=== PATIENT | male | born 1980 | race Two or more races ===

== ENCOUNTER 2017-10-02 13:56 | Emergency (ER) | payer OTHER ==
[2017-10-02] MEDS ORDERED: ONDANSETRON HCL 4 MG/2 ML VIAL ONE (14:07)
[2017-10-02] MEDS ORDERED: MORPHINE SULFATE 4 MG/ML SYR/VIAL ONE (14:07)
[2017-10-02] MEDS ORDERED: SODIUM CHLORIDE 0.9% 1,000 ML IV ONE ×2 (14:15→15:43)
[2017-10-02] MEDS ORDERED: ceFAZolin 1GM/50ML 50 ML IV ONE (14:15)
[2017-10-02] MEDS ORDERED: MORPHINE SULFATE 4 MG/ML SYR/VIAL IV ONE ×2 (14:15→19:00)
[2017-10-02] MEDS ORDERED: HYDROmorphone HCL 2 MG/ML VL IV ONE (14:15)
[2017-10-02] MEDS ORDERED: ONDANSETRON HCL 4 MG/2 ML VIAL IV ONE (14:15)
[2017-10-02] MEDS ORDERED: LIDOCAINE 1% HCL (LOCAL ANESTH.) INJ 20ML MDV ONE (14:23)
[2017-10-02] MEDS ORDERED: LIDOCAINE 1% HCL (LOCAL ANESTH.) INJ 20ML MDV IJ ONE (15:15)
[2017-10-02 16:36] LABS: Basophils # (auto) 0 uL; Basophils % (auto) 0.2 % (0.0-2.0); Eosinophils # (auto) 0 uL; Eosinophils % (auto) 0.3 % (0.0-7.0); Hematocrit 51.2 % (41.0-53.0); Hemoglobin 16.8 g/dL (13.5-17.5); Lymphocytes # (auto) 0.7 uL; Lymphocytes % (auto) 6.4 % (10.0-50.0); Mean Corpuscular Hemoglobin 29.8 pg (28.0-32.0); Mean Corpuscular Hgb Conc. 32.8 g/dL (32.0-36.0); Mean Corpuscular Volume 90.8 fL (80.0-100.0); Monocytes # (auto) 0.5 uL; Monocytes % (auto) 4.5 % (0.0-12.0); Neutrophils # (auto) 9.2 uL; Neutrophils % (auto) 88.6 % (37.0-80.0); Nucleated Red Blood Cells % 0.1 %; Platelet Count (auto) 231 10^3/uL (140-450); Red Blood Cells 5.64 10^6/uL (4.5-5.90); Red Cell Distribution Width 14.2 % (11.8-14.3); White Blood Cell 10.4 10^3/uL (4.4-10.8)
[2017-10-02 16:50] LABS: BUN/Creatinine Ratio 10.9; Calcium 8.4 mg/dL (8.5-10.1); Potassium 3.9 mmol/L (3.5-5.1)
[2017-10-02 18:48] VITALS: BP 125/77
[2017-10-02] MEDS ORDERED: cefTRIAXone 1GM/10ml IVPUSH 10 ML IV ONE ×2 (19:13→20:00)
[2017-10-02] MEDS ORDERED: MEPERIDINE HCL (50 MG/ML) 1 ML VIAL IV ONE (20:15)
[2017-10-02] MEDS ORDERED: MEPERIDINE HCL (50 MG/ML) 1 ML VIAL ONE (20:30)
== END 2017-10-02 21:48 | disposition short-term general hospital (02) ==
LOC: ER 14:02
DX: S68.110A Complete traumatic metacarpophalangeal amputation of right index finger, initial encounter (principal); W45.8XXA Other foreign body or object entering through skin, initial encounter; Y93.89 Activity, other specified; Y92.69 Other specified industrial and construction area as the place of occurrence of the external cause; Y99.8 Other external cause status
CPT/HCPCS: 13132; 13133; 36415; 73140; 80048; 85025; 96361; 96365; 96375; 96376; 99291; J0690; J2001; J2175; J2270; J2405; 12004

== ENCOUNTER 2017-10-06 12:38 | Emergency (ER) | payer OTHER ==
[~2017-10-06] VITALS: Ht 167.6 cm; Wt 79.4 kg
[2017-10-06 15:01] VITALS: BP 120/68
== END 2017-10-06 15:03 | disposition home or self-care (01) ==
LOC: ER 12:38
DX: M79.641 Pain in right hand (principal); Z48.01 Encounter for change or removal of surgical wound dressing